=== PATIENT | female | born 1990 | race Caucasian/White ===

== ENCOUNTER 2022-11-24 18:04 | Emergency (ER) | payer BC, OTHER ==
[~2022-11-24] VITALS: Ht 160 cm; Wt 65.0 kg
[2022-11-24 18:08] VITALS: BP 118/77; PULSE 117; RESP 18; TEMP 97.8; O2SAT 99
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
== END 2022-11-24 21:10 | disposition left against medical advice (07) ==
LOC: ER 18:05
DX: R10.9 Unspecified abdominal pain (principal); Z53.21 Procedure and treatment not carried out due to patient leaving prior to being seen by health care provider
CPT/HCPCS: 99281

== ENCOUNTER 2025-02-01 15:23 | Outpatient (CLI) | payer OTHER ==
--- NOTE | 2025-02-01 17:02 | RADIOLOGY REPORT ---
EXAM: DI CHEST,TWO VIEWS HISTORY: SOB COMPARISON: None TECHNIQUE: PA and lateral views of the chest were performed. FINDINGS: No pneumothorax, pulmonary edema, pleural effusions, or consolidative infiltrates. The heart is not enlarged. No fractures are identified about the bony thorax. IMPRESSION: No acute intrathoracic process.
== END 2025-02-01 23:59 | disposition home or self-care (01) ==
LOC: RAD 15:23
PROVIDERS: ATTEND Physician Assistant
DX: R06.02 Shortness of breath (principal)
CPT/HCPCS: 71046